=== PATIENT | male | born 1955 | race Caucasian/White ===

== ENCOUNTER → 2022-02-09 09:23 | Outpatient (CLI) | payer MEDICARE, SELFPAY ==
[2022-02-09 14:28] LABS: SARS-CoV-2 RNA PCR Negative
== END ==
PROVIDERS: Visit Provider Internal Medicine Cardiovascular Disease
DX: Z01.812 Encounter for preprocedural laboratory examination (principal); Z20.822 Contact with and (suspected) exposure to COVID-19
CPT/HCPCS: C9803; U0003; U0005

== ENCOUNTER 2022-11-08 17:29 | Emergency (ER) | payer MEDICARE, SELFPAY ==
--- NOTE | ~2022-11-08 | XR_ITS ---
EXAMINATION: XR finger 2nd RT min 2V DATE: 11/08/2022 18:03 INDICATION: Right hand second digit injury. TECHNIQUE: 4 views of right hand second digit were obtained. COMPARISON: None. FINDINGS: There is a nondisplaced oblique fracture of tuft of second distal phalanx. 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 IMPRESSION: 1. Fracture of tuft of second distal phalanx. Reviewed, dictated and finalized at location A. [employer]
[2022-11-08 18:05] VITALS: BP 146/76; PULSE 91; RESP 16; TEMP 36.7; O2SAT 98
[2022-11-08 18:10] VITALS: BP 146/76; PULSE 91; RESP 16; TEMP 36.7; O2SAT 98
[2022-11-08] MEDS: TETANUS,DIPHTHERIA,AC PERTUSSIS ADULT (0.5 ML) BOOSTRIX IM (19:06)
--- NOTE | 2022-11-09 20:41 | ED.GENADULT ---
HPI - General Adult General Chief complaint: Wound/Laceration Stated complaint: finger injury History of Present Illness HPI narrative: Mr Arechiga is a 67 y/o male. PMHx HTN, Dyslipidemia. Presents to [facility] clinic today with acute complaints of RT pointer finger injury & laceration. Client reports to have been closing a vehicle door, when he accidentally 'slammed' the door on his RT finger. -Incident had occurred immediately BUSINESS ASST. -Laceration to RT pointer/2nd finger tip pad. Bleeding controlled. -Unknown last Tetanus. -Pre-Diabetic. -No loss of upper extremity or digit sensation or control. -No additional injury has been identified. Related Data Home Medications Medication Instructions Recorded Confirmed amlodipine 10 mg tablet 10 mg PO DAILY 11/08/22 11/08/22 apixaban 5 mg tablet (Eliquis) 5 mg PO DAILY 11/08/22 11/08/22 aspirin 81 mg capsule 81 mg PO DAILY 11/08/22 11/08/22 carvedilol 25 mg tablet 25 mg PO DAILY 11/08/22 11/08/22 colesevelam 625 mg tablet 625 mg PO DAILY 11/08/22 11/08/22 ezetimibe 10 mg tablet 10 mg PO DAILY 11/08/22 11/08/22 lisinopril 20 20 tablet PO DAILY 11/08/22 11/08/22 mg-hydrochlorothiazide 12.5 mg tablet rosuvastatin 40 mg tablet 40 mg PO DAILY 11/08/22 11/08/22 Allergies Allergy/AdvReac Type Severity Reaction Status Date / Time NKDA Allergy Mild Unknown Uncoded 11/08/22 18:06 Review of Systems Review of Systems: MUSCULOSKELETAL: RT 2nd/pointer finger injury-laceration. Denies additional joint pain, or myalgia. NEUROLOGIC: Denies numbness, or focal weakness. All other systems have been reviewed: Unless noted remaining ROS Negative. Exam Narrative: GENERAL: This is a well-nourished, well-developed adult, in no apparent distress. HEAD: normocephalic. EYES: Sclera clear/white. NECK: Neck supple. CARDIOVASCULAR: Regular rate and rhythm. Strong radial pulses RUE. Cap refill intact RUE/Affected digit. SPO2 98% on affected digit. RESPIRATORY: Clear to auscultation. GASTROINTESTINAL: Abdomen soft. SKIN: With 1 cm linear laceration located to the fat pad of RT Pointer/2nd digit tip. No FB. Bleeding controlled. No nail involvement. MUSC: Tenderness and laceration to RT 2nd digit tip, see also SKIN documentation above. Client is able to fully flex and extend digit at all sites, no laxity. Bony tenderness overlying finger tuft/distal phalanx. No obvious deformities. Remainder of RUE exam is negative. NEURO: Alert, active, and age appropriate. Good sensation and discrimination RUE, all sites and digits. Course Course Level of Care: Express Care Visit Vital Signs Vital signs: Vital Signs Temperature 36.7 C 11/08/22 18:05 Pulse Rate 91 11/08/22 18:05 Respiratory Rate 16 11/08/22 18:05 Blood Pressure 146/76 H 11/08/22 18:05 Pulse Oximetry 98 11/08/22 18:05 Temperature 36.7 C 11/08/22 18:10 Pulse Rate 91 11/08/22 18:10 Respiratory Rate 16 11/08/22 18:10 Blood Pressure 146/76 H 11/08/22 18:10 Pulse Oximetry 98 11/08/22 18:10 Procedures Laceration Laceration 1: Date: 11/08/22 Time: 18:15 Site: upper extremity (RT 2nd digit/finger) Side (If applicable): right Size (cm): 1 Description: linear Depth: simple, single layer Local Anesthetic: lidocaine 1% Amount of anesthesia used (mL): 1 Pre-repair: wound explored and irrigated extensively ====== Skin Level ====== Skin layer closed with: nylon Size (cm): 4-0 Number of sutures: 3 Technique: simple, interrupted ====== Subcutaneous Layer ====== ====== Muscle Layer ====== ====== Tendon Layer ====== Dressing: Client tolerated procedure w/o difficulty. RT 2nd digit placed in Splint post procedure. Medical Decision Making MDM Narrative Medical decision making narrative: -RT 2nd digit Fingertip laceration repaired without complication, uninterrupted
== END 2022-11-08 20:07 | disposition home or self-care (01) ==
PROVIDERS: Emergency Provider Nurse Practitioner Adult Health
DX: S62.660A Nondisplaced fracture of distal phalanx of right index finger, initial encounter for closed fracture (principal); X58.XXXA Exposure to other specified factors, initial encounter; S61.210A Laceration without foreign body of right index finger without damage to nail, initial encounter; Z23 Encounter for immunization; I10 Essential (primary) hypertension; E78.5 Hyperlipidemia, unspecified
CPT/HCPCS: 29130; 12001; 73140; 90471; 90715; 99214; G0463